=== PATIENT | female | born 1950 | race African-American/Black ===

== ENCOUNTER 2021-05-20 12:47 | Inpatient (IN) | payer MEDICARE, MEDICAID ==
[~2021-05-20] VITALS: Ht 165.1 cm; Wt 104.8 kg
[2021-05-20] MEDS ORDERED: LORAZEPAM 2MG/ML CPJ IV ONE (13:00)
[2021-05-20] MEDS ORDERED: PHENYTOIN SODIUM 1,000 MG in SODIUM CHLORIDE 0.9% 100 ML IV ONE (13:00)
[2021-05-20] MEDS ORDERED: SODIUM CHLORIDE 0.9% 1,000 ML IV ONE (13:00)
[2021-05-20] MEDS ORDERED: LORAZEPAM 2MG/ML CPJ ONE (13:01)
[2021-05-20 13:10] LABS: BASOPHILS % 0.5 % (0.0-2.0); EOSINOPHILS % 5.2 % (0.0-5.0); HEMATOCRIT. 41.3 % (36.0-48.0); MEAN CORPUSCULAR HEMOGLOBIN 33.8 pg (28.0-32.0); MEAN CORPUSCULAR VOLUME 99.7 fL (81.0-99.0); MEAN PLATELET VOLUME 9.1 fl (7.4-10.4); MONOCYTES % 11.5 % (2.0-8.0); NEUTROPHILS % 39.8 % (40.0-76.0); PLATELET 390 x1000/uL (130-400); RED BLOOD CELL COUNT 4.15 mill/uL (4.2-5.4); RED CELL DISTRIBUTION WIDTH 13.6 % (11.6-14.6)
[2021-05-20 13:17] LABS: CHLORIDE 104 mEq/L (98-107)
[2021-05-20 13:23] LABS: ETHANOL BLOOD < 10 mg/dL
[2021-05-20 13:31] LABS: CARBAMAZEPINE 9.2 ug/mL (4-12)
[2021-05-20 13:48] LABS: PHENOBARBITAL < 2.1 ug/mL (15.0-40.0); VALPROIC ACID < 3.0 ug/mL (50-100)
[2021-05-20] MEDS ORDERED: PIPERACILLIN/TAZ 3.375G PREMIX 50 ML IV NR (14:15)
[2021-05-20 15:29] LABS: CLARITY URINE TURBID (CLEAR); COLOR URINE YELLOW (YELLOW); KETONES URINE NEGATIVE (NEGATIVE); LEUKOCYTE ESTERASE URINE 3+ (NEGATIVE); NITRITE URINE NEGATIVE (NEGATIVE); OCCULT BLOOD URINE TRACE (NEGATIVE); PH URINE 7.5 (4.5-8.0); PROTEIN URINE TRACE (NEGATIVE); UROBILINOGEN URINE 0.2 E.U./dL (0.2-1.0)
[2021-05-20 15:46] LABS: *AMPHETAMINES SCREEN URINE NEGATIVE (NEGATIVE); *BARBITURATES SCREEN URINE NEGATIVE (NEGATIVE); *BENZODIAZEPINES SCREEN URINE PRESUMTIVE POSITIVE (NEGATIVE); *COCAINE SCREEN URINE NEGATIVE (NEGATIVE)
[2021-05-20 15:47] LABS: CANNABINOID URINE SCREEN NEGATIVE (NEGATIVE); METHADONE URINE SCREEN NEGATIVE (NEGATIVE); OPIATES URINE SCREEN NEGATIVE (NEGATIVE); PHENCYCLIDINE URINE SCREEN NEGATIVE (NEGATIVE)
[2021-05-21] MEDS ORDERED: GUAIFENESIN 200MG/10ML SUGAR FREE UDC PO PRN (06:30)
[2021-05-21] MEDS ORDERED: ONDANSETRON HCL 4MG/2ML INJ IV PRN (06:30)
[2021-05-21] MEDS ORDERED: CEFTRIAXONE 1 G PREMIX 50 ML IV SCH (06:30)
[2021-05-21] MEDS ORDERED: DOCUSATE SODIUM 100MG CAPSULE PO PRN (06:30)
[2021-05-21] MEDS ORDERED: ACETAMINOPHEN 650MG SUPP PR PRN (06:30)
[2021-05-21] MEDS ORDERED: LORAZEPAM 2MG/ML CPJ IV PRN (06:30)
[2021-05-21] MEDS ORDERED: HYDROCODONE/ACETAMINOPHEN 5/325MG TABLET PO PRN (06:30)
[2021-05-21] MEDS: DEXT 5%/0.45% NACL 1000ML 1,000 ML IV SCH ×2 (08:00→18:58)
[2021-05-21 12:36] VITALS: BP 127/95
[2021-05-21] MEDS ORDERED: MAGN400T29 PO (13:37)
[2021-05-21] MEDS ORDERED: FERR324T4 PO (13:37)
[2021-05-21] MEDS ORDERED: AMLO10TA80 PO (13:37)
[2021-05-21] MEDS ORDERED: LACO200T2 PO (13:37)
[2021-05-21] MEDS ORDERED: QUET100T PO (13:37)
[2021-05-21] MEDS ORDERED: SIMV10TA97 PO (13:37)
[2021-05-21] MEDS ORDERED: ESCI5SOL2 PO (13:37)
[2021-05-21] MEDS ORDERED: POLY17PO3 MT (13:37)
[2021-05-21] MEDS ORDERED: CARB200T6 PO (13:37)
[2021-05-21] MEDS ORDERED: DOCU-150 PO (13:37)
[2021-05-21] MEDS ORDERED: ASPI-1497 PO (13:37)
[2021-05-21] MEDS ORDERED: CLON0.5T23 PO (13:37)
[2021-05-21] MEDS ORDERED: MAGN200T5 PO (13:37)
[2021-05-21] MEDS ORDERED: CLON-457 PO (13:37)
[2021-05-21] MEDS ORDERED: LEVO125T8 PO (13:37)
[2021-05-21] MEDS ORDERED: LAMO200T9 PO (13:37)
[2021-05-21] MEDS ORDERED: PANT20TA17 PO (13:37)
[2021-05-21] MEDS: PHENYTOIN SODIUM 100MG/2ML VIAL IV SCH ×2 (14:08→21:56)
[2021-05-21] MEDS ORDERED: NALOXONE HCL 0.4MG/ML VIAL IV PRN (14:15)
[2021-05-21] MEDS: LEVOTHYROXINE SODIUM 125MCG TABLET PO SCH (15:22)
[2021-05-21] MEDS: CITALOPRAM HYDROBROMIDE 10MG TABLET PO SCH (15:22)
[2021-05-21 16:00] VITALS: BP 110/83
[2021-05-21] MEDS: MAGNESIUM OXIDE 400MG TABLET PO SCH (16:24)
[2021-05-21] MEDS: CARBAMAZEPINE 200MG TABLET PO SCH (16:24)
[2021-05-21 20:00] VITALS: BP 158/80
[2021-05-21] MEDS: ATORVASTATIN CALCIUM 10MG TABLET PO SCH (21:57)
[2021-05-21] MEDS: QUETIAPINE FUMARATE 50MG TABLET PO SCH (21:58)
[2021-05-21] MEDS: CLONAZEPAM 0.5MG TABLET PO SCH (21:58)
[2021-05-22] VITALS: BP 148/83
[2021-05-22 04:00] VITALS: BP 141/73
[2021-05-22] MEDS: CEFTRIAXONE 1,000 MG in DEXTROSE 5% WATER 50 ML IV SCH (06:26)
[2021-05-22] MEDS: LEVOTHYROXINE SODIUM 125MCG TABLET PO SCH (06:26)
[2021-05-22] MEDS: PHENYTOIN SODIUM 100MG/2ML VIAL IV SCH ×3 (06:26→21:33)
[2021-05-22 07:00] LABS: BASOPHILS % 1.1 % (0.0-2.0); EOSINOPHILS % 4.9 % (0.0-5.0); HEMATOCRIT. 39.6 % (36.0-48.0); HEMOGLOBIN. 13.5 g/dL (12.0-16.0); LYMPHOCYTES % 22.4 % (20.0-50.0); MEAN CORPUSCULAR HEMOGLOBIN 33.5 pg (28.0-32.0); MEAN CORPUSCULAR VOLUME 98.6 fL (81.0-99.0); MEAN PLATELET VOLUME 8.9 fl (7.4-10.4); MONOCYTES % 12.4 % (2.0-8.0); NEUTROPHILS % 59.2 % (40.0-76.0); PLATELET 292 x1000/uL (130-400); RED BLOOD CELL COUNT 4.02 mill/uL (4.2-5.4); RED CELL DISTRIBUTION WIDTH 13.4 % (11.6-14.6)
[2021-05-22 07:13] LABS: CHLORIDE 105 mEq/L (98-107)
[2021-05-22 07:30] LABS: CARBAMAZEPINE 3.3 ug/mL (4-12)
[2021-05-22 08:00] VITALS: BP 151/67
[2021-05-22] MEDS: QUETIAPINE FUMARATE 50MG TABLET PO SCH ×2 (08:15→21:32)
[2021-05-22] MEDS: CITALOPRAM HYDROBROMIDE 10MG TABLET PO SCH (08:15)
[2021-05-22] MEDS: MAGNESIUM OXIDE 400MG TABLET PO SCH ×2 (08:15→17:08)
[2021-05-22] MEDS: CARBAMAZEPINE 200MG TABLET PO SCH ×3 (08:15→17:08)
[2021-05-22] MEDS ORDERED: INFLUENZA VACCINE 05/PF 0.5 ML SYRINGE IM ONE (09:00)
[2021-05-22] MEDS ORDERED: PHENYTOIN SODIUM 500 MG in SODIUM CHLORIDE 0.9% 50 ML IV NR (10:00)
[2021-05-22 12:00] VITALS: BP 145/61
[2021-05-22 16:00] VITALS: BP 107/65
[2021-05-22] MEDS: LACOSAMIDE 100 MG TABLET PO SCH (17:08)
[2021-05-22] MEDS: DEXT 5%/0.45% NACL 1000ML 1,000 ML IV SCH ×2 (17:09→21:34)
[2021-05-22 20:00] VITALS: BP 98/68
[2021-05-22] MEDS: ATORVASTATIN CALCIUM 10MG TABLET PO SCH (21:32)
[2021-05-22] MEDS: CLONAZEPAM 0.5MG TABLET PO SCH (21:32)
[2021-05-23] VITALS (7 sets, daily range): BP systolic 125–158; BP diastolic 67–93
[2021-05-23] MEDS: CEFTRIAXONE 1,000 MG in DEXTROSE 5% WATER 50 ML IV SCH (05:56)
[2021-05-23] MEDS: LEVOTHYROXINE SODIUM 125MCG TABLET PO SCH (05:56)
[2021-05-23] MEDS: PHENYTOIN SODIUM 100MG/2ML VIAL IV SCH (06:16)
[2021-05-23 07:43] LABS: CARBAMAZEPINE 5.6 ug/mL (4-12)
[2021-05-23] MEDS: QUETIAPINE FUMARATE 50MG TABLET PO SCH ×2 (08:53→21:40)
[2021-05-23] MEDS: LACOSAMIDE 100 MG TABLET PO SCH ×2 (08:53→17:29)
[2021-05-23] MEDS: MAGNESIUM OXIDE 400MG TABLET PO SCH ×2 (08:53→17:29)
[2021-05-23] MEDS: CARBAMAZEPINE 200MG TABLET PO SCH ×3 (08:53→17:29)
[2021-05-23] MEDS: CITALOPRAM HYDROBROMIDE 10MG TABLET PO SCH (08:53)
[2021-05-23] MEDS: ENOXAPARIN 30MG/0.3ML SYR SUBCUT SCH ×2 (11:04→21:41)
[2021-05-23] MEDS: CEFEPIME HCL 1000MG/VIAL INJ IM SCH ×2 (11:04→21:40)
[2021-05-23] MEDS ORDERED: PHENYTOIN SODIUM 100MG/2ML VIAL IV SCH (21:00)
[2021-05-23] MEDS: CLONAZEPAM 0.5MG TABLET PO SCH (21:40)
[2021-05-23] MEDS: ATORVASTATIN CALCIUM 10MG TABLET PO SCH (21:40)
[2021-05-24 00:05] VITALS: BP 142/77
[2021-05-24 04:00] VITALS: BP 172/82
[2021-05-24] MEDS: LEVOTHYROXINE SODIUM 125MCG TABLET PO SCH (06:41)
[2021-05-24 07:52] VITALS: BP 150/80
[2021-05-24] MEDS: ENOXAPARIN 30MG/0.3ML SYR SUBCUT SCH (08:06)
[2021-05-24] MEDS: LACOSAMIDE 100 MG TABLET PO SCH (08:06)
[2021-05-24] MEDS: CEFEPIME HCL 1000MG/VIAL INJ IM SCH (08:06)
[2021-05-24] MEDS: CITALOPRAM HYDROBROMIDE 10MG TABLET PO SCH (08:07)
[2021-05-24] MEDS: MAGNESIUM OXIDE 400MG TABLET PO SCH (08:07)
[2021-05-24] MEDS: CARBAMAZEPINE 200MG TABLET PO SCH (08:07)
[2021-05-24] MEDS: QUETIAPINE FUMARATE 50MG TABLET PO SCH (08:07)
[2021-05-24] MEDS ORDERED: PHENYTOIN SODIUM EXTENDED 100MG CAPSULE PO SCH (09:00)
== END 2021-05-24 09:30 | disposition home health service (06) | DRG 101 ==
LOC: ER 12:47 → MICUSO 15:35 → EDBEDREQ 15:42 → EDBEDREQTM 15:42 → 7EST 05-21 12:38
PROVIDERS: ADMIT Hospitalist; ATTEND Hospitalist
PROC: 4A10X4Z Monitoring of Central Nervous Electrical Activity, External Approach (ICD-10-PCS; principal; 2021-05-22)
DX: G40.401 Other generalized epilepsy and epileptic syndromes, not intractable, with status epilepticus (principal); N39.0 Urinary tract infection, site not specified; Z20.822 Contact with and (suspected) exposure to COVID-19; F79 Unspecified intellectual disabilities; B96.89 Other specified bacterial agents as the cause of diseases classified elsewhere; F31.9 Bipolar disorder, unspecified; I10 Essential (primary) hypertension; Z87.891 Personal history of nicotine dependence; Z88.8 Allergy status to other drugs, medicaments and biological substances; H54.7 Unspecified visual loss
CPT/HCPCS: 36415; 71045; 80053; 80156; 80165; 80184; 80185; 80305; 80320; 80339; 81003; 82962; 83605; 83880; 84145; 84443; 84484; 85025; 87077; 87186; 87426; 90686; 93005; 95816; 99291; J0692; J0696; J1165; J1650; J2060; J2405; J2543; J7030; J7050; J7060; G0480